=== PATIENT | female | born 1995 | race American Indian/Alaskan Native ===

== ENCOUNTER 2018-09-23 08:39 | Outpatient (CLI) | payer BC ==
[2018-09-23 10:35] LABS: HCG Qualitative,Urine Negative (Negative)
--- NOTE | 2018-09-26 09:03 | Fluoroscopy Report ---
HYSTEROSALPINGOGRAM: History: Infertility. Informed consent was obtained. Standard sterile prep and drape was employed. The catheter tip was subsequently placed within the uterine lumen via cervix. The small balloon on the tip of the catheter was inflated. 17 fluoroscopic images were captured during this exam. Retrograde injection opacifies normal appearing uterine lumen. No evidence for congenital uterine abnormality or intrinsic/extrinsic mass. Right fallopian tubule: The interstitial, isthmic and ampullary regions of the right fallopian tubule are identified however no convincing spillage of the contrast agent in to the pelvis was demonstrated on the right side suggesting a distal occlusion. Left fallopian tubule: The left fallopian tubule did not opacify initially and appeared to be blocked in the interstitial portion of the tubule. This could be secondary to spasm. Subsequent images with additional pressure demonstrate passage of this blockage and opacification of a normal-appearing left fallopian tube with spillage into the pelvis. IMPRESSION: Questionable distal blockage in the right fallopian tubule. The left fallopian tubule appears to have been blocked by debris but is within normal limits. See above. Normal appearance of the uterine cavity.
== END 2018-09-23 08:40 | disposition home or self-care (01) ==
LOC: FLUORO 08:39
PROVIDERS: ATTEND Internal Medicine
DX: N97.8 Female infertility of other origin (principal); N64.4 Mastodynia; Z79.899 Other long term (current) drug therapy
CPT/HCPCS: 58340; 74740; 81025; Q9967